=== PATIENT | female | born 1970 | race Two or more races ===

== ENCOUNTER 2018-03-27 12:56 | Emergency (ER) | payer OTHER ==
[~2018-03-27] VITALS: Ht 167.6 cm; Wt 80.7 kg
[2018-03-27 12:43] VITALS: BP 124/77
[2018-03-27] MEDS ORDERED: HYDROcodone/Acetamin 7.5/325 tab ORAL ONE (13:15)
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
[2018-03-27] MEDS ORDERED: LIDODERM700 M1 TOPIC (15:10)
[2018-03-27] MEDS ORDERED: TYLENOL EXTRA500 MG ORAL (15:10)
[2018-03-27] MEDS ORDERED: ROBAXIN500 MG PO (15:10)
[2018-03-27 15:25] VITALS: BP 122/73
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
== END 2018-03-27 15:27 | disposition home or self-care (01) ==
LOC: EDBD 12:56 → EMR 14:28
DX: S16.1XXA Strain of muscle, fascia and tendon at neck level, initial encounter (principal); S43.401A Unspecified sprain of right shoulder joint, initial encounter; M54.5 Low back pain; V43.52XA Car driver injured in collision with other type car in traffic accident, initial encounter; Y92.410 Unspecified street and highway as the place of occurrence of the external cause; M25.551 Pain in right hip
CPT/HCPCS: 72125; 72131; 99284